=== PATIENT | female | born 1970 | race Caucasian/White ===

== ENCOUNTER 2017-09-30 21:57 | Emergency (ER) | payer SELFPAY ==
[~2017-09-30] VITALS: Ht 160 cm; Wt 56.7 kg
[~2017-09-30 21:57] MED LIST: METR500T PO; ONDA8TAB12 PO; PENI500T PO; TRAM1TAB4 PO
--- NOTE | 2017-09-30 22:01 | ED.ADGEN ---
Past History Past Medical History: Depression, Fibromyalgia, GERD, UTI, Other Past Surgical History: Hysterectomy, Other Smoking: Non-smoker Alcohol Use: Rarely Drug Use: None Adult General Chief Complaint Chief Complaint ".. I was coughing hard.. and I felt something give down in my groin and vaginal area... it been hurting ever since..." [facility] HPI Patient is a 47 year old female who presents with above hx and complaints lower abd. pain after coughing spasms 3 days ago. Pt. has hx of epigastric pain and irritable bowel. . Pt. has had previous hx. of frequent UTI as child and up thru. teenager. Pt. has hx of frequent ovarian cyst which resulted in total oophorectomy and hysterectomy. Patient's gravid x2, x 2. Vaginal deliveries. Episodes of crabs- pubic lice as a teenager. No other STD's. Pt. had 9 sexual partners in her life time. Pt. denies other trauma or recent sexual activity. Pt. denies hx of immunosuppression. No changes in stooling. Pt. has noted some dysuria and feels like she can't empty her bladder. Has noticed since the coughing episode bulge into her vaginal area. Pt. normally follows as [place]. Review of Systems Review of Systems Constitutional: Denies fever or chills [] Eyes: Denies change in visual acuity, redness, or eye pain [] HENT: Denies nasal congestion or sore throat [] Respiratory: Denies cough or shortness of breath [] Cardiovascular: No additional information not addressed in HPI [] GI: lower pelvic abdominal pain, nausea,. Denies vomiting, bloody stools or diarrhea [] : Some complaints of dysuria. Musculoskeletal: Denies back pain or joint pain [] Integument: Denies rash or skin lesions [] Neurologic: Denies headache, focal weakness or sensory changes [] Endocrine: Denies polyuria or polydipsia [] All other systems were reviewed and found to be within normal limits, except as documented in this note. Family History Family History Non-contributory Current Medications Current Medications Current Medications Medications (Trade) Dose Ordered Sig/Rosalba Start Time Stop Time Status Last Admin Dose Admin Famotidine (Pepcid Vial) 20 mg 1X ONCE 09/30/17 23:00 09/30/17 23:05 DC 09/30/17 23:07 20 MG Info (Do NOT chart on this entry -- for MONITORING) 1 each PRN DAILY PRN 09/30/17 23:15 10/01/17 02:10 DC Iohexol (Omnipaque 240 Mg/ml) 30 ml 1X ONCE 09/30/17 23:00 09/30/17 23:04 DC 10/01/17 00:06 30 ML Iohexol (Omnipaque 300 Mg/ml) 75 ml 1X ONCE 09/30/17 23:00 09/30/17 23:05 DC 10/01/17 00:06 75 ML Lactated Ringer's 1,000 ml @ 1,000 mls/hr Q1H 09/30/17 22:30 09/30/17 23:29 DC 09/30/17 23:06 1,000 MLS/HR Ondansetron HCl (Zofran) 8 mg 1X ONCE 09/30/17 23:00 09/30/17 23:05 DC 09/30/17 23:07 8 MG Allergies Allergies Allergies Coded Allergies Type Severity Reaction Last Updated Verified Sulfa (Sulfonamide Antibiotics) Allergy Unknown 11/17/15 Yes ascorbic acid Allergy Unknown 11/17/15 Yes Physical Exam Physical Exam Constitutional: Moderately acute distress, non-toxic appearance. [] HENT: Normocephalic, atraumatic, bilateral external ears normal, oropharynx moist, no oral exudates, nose normal. [] Eyes: PERRLA, EOMI, conjunctiva normal, no discharge. [] Neck: Normal range of motion, no tenderness, supple, no stridor. [] Cardiovascular:Heart rate regular rhythm, no murmur [] Lungs & Thorax: Bilateral breath sounds clear to auscultation [] Abdomen: Bowel sounds normal, soft, no tenderness, no masses, no pulsatile masses. [] Old surgery scars. Distended bladder. Vaginal area has some compression of bladder into vaginal area. Rectal hard stool. Skin: Warm, dry, no erythema, no rash. [] Back: No tenderness, no CVA tenderness. [] Extremities: No tenderness, no cyanosis, no clubbing, ROM intact, no edema. [] No psoas or obturator sign Neurologic: Alert and oriented X 3, normal motor function, normal sensory function, no focal deficits noted. [] Psychologic: Affect normal, judgement normal, mood normal. [] Current Patient Data Vital Signs Vital Signs Date Time Temp Pulse Resp B/P (MAP) Pulse Ox O2 Delivery O2 Flow Rate FiO2 10/01/17 01:35 79 18 115/72 (86) 98 Room Air 09/30/17 22:05 98.8 Lab Results Laboratory Tests Test 09/30/17 22:05 09/30/17 22:35 Urine Collection Type Unknown Urine Color Yellow Urine Clarity Clear Urine pH 6.5 Urine Specific [place] 1.010 Urine Protein Neg (NEG-TRACE) Urine Glucose (UA) Neg mg/dL (NEG) Urine Ketones (Stick) Neg mg/dL (NEG) Urine Blood Trace (NEG) Urine Nitrite Neg (NEG) Urine Bilirubin Neg (NEG) Urine Urobilinogen Dipstick 0.2 mg/dL (0.2 mg/dL) Urine Leukocyte Esterase Neg (NEG) Urine RBC 0 /HPF (0-2) Urine WBC 0 /HPF (0-4) Urine Squamous Epithelial Cells Few /LPF Urine Bacteria 0 /HPF (0-FEW) Urine Mucus Mod /LPF Urine Opiates Screen Neg (NEG) Urine Methadone Screen Neg (NEG) Urine Barbiturates Neg (NEG) Urine Phencyclidine Screen Neg (NEG) Urine Amphetamine/Methamphetamine Neg (NEG) Urine Benzodiazepines Screen Neg (NEG) Urine Cocaine Screen Neg (NEG) Urine Cannabinoids Screen Pos (NEG) Urine Ethyl Alcohol Neg (NEG) White Blood Count 6.7 x10^3/uL (4.0-11.0) Red Blood Count 4.80 x10^6/uL (3.50-5.40) Hemoglobin 14.3 g/dL (12.0-15.5) Hematocrit 40.9 % (36.0-47.0) Mean Corpuscular Volume 85 fL (79-100) Mean Corpuscular Hemoglobin 30 pg (25-35) Mean Corpuscular Hemoglobin Concent 35 g/dL (31-37) Red Cell Distribution Width 13.1 % (11.5-14.5) Platelet Count 288 x10^3/uL (140-400) Neutrophils (%) (Auto) 53 % (31-73) Lymphocytes (%) (Auto) 38 % (24-48) Monocytes (%) (Auto) 5 % (0-9) Eosinophils (%) (Auto) 4 % (0-3) H Basophils (%) (Auto) 1 % (0-3) Neutrophils # (Auto) 3.5 x10^3uL (1.8-7.7) Lymphocytes # (Auto) 2.5 x10^3/uL (1.0-4.8) Monocytes # (Auto) 0.3 x10^3/uL (0.0-1.1) Eosinophils # (Auto) 0.2 x10^3/uL (0.0-0.7) Basophils # (Auto) 0.1 x10^3/uL (0.0-0.2) Prothrombin Time 10.0 SEC (9.4-11.4) Prothrombin Time INR 1.0 (0.9-1.1) PTT 25 SEC (23-33) Sodium Level 143 mmol/L (136-145) Potassium Level 3.4 mmol/L (3.5-5.1) L Chloride Level 104 mmol/L (98-107) Carbon Dioxide Level 29 mmol/L (21-32) Anion Gap 10 (6-14) Blood Urea Nitrogen 13 mg/dL (7-20) Creatinine 1.0 mg/dL (0.6-1.0) Estimated GFR (Cockcroft-Gault) 59.4 Glucose Level 100 mg/dL (70-99) H Calcium Level 8.9 mg/dL (8.5-10.1) Total Bilirubin 0.5 mg/dL (0.2-1.0) Direct Bilirubin 0.1 mg/dL (0.0-0.2) Aspartate Amino Transferase (AST) 16 U/L (15-37) Alanine Aminotransferase (ALT) 23 U/L (14-59) Alkaline Phosphatase 84 U/L (46-116) Troponin I Quantitative < 0.017 ng/mL (0-0.055) Total Protein 7.8 g/dL (6.4-8.2) Albumin 4.1 g/dL (3.4-5.0) Lipase 127 U/L (73-393) Microbiology 09/30/17 Wet Prep - Final, Complete Laboratory Tests Test 09/30/17 22:05 09/30/17 22:35 Urine Collection Type Unknown Urine Color Yellow Urine Clarity Clear Urine pH 6.5 Urine Specific [place] 1.010 Urine Protein Neg (NEG-TRACE) Urine Glucose (UA) Neg mg/dL (NEG) Urine Ketones (Stick) Neg mg/dL (NEG) Urine Blood Trace (NEG) Urine Nitrite Neg (NEG) Urine Bilirubin Neg (NEG) Urine Urobilinogen Dipstick 0.2 mg/dL (0.2 mg/dL) Urine Leukocyte Esterase Neg (NEG) Urine RBC 0 /HPF (0-2) Urine WBC 0 /HPF (0-4) Urine Squamous Epithelial Cells Few /LPF Urine Bacteria 0 /HPF (0-FEW) Urine Mucus Mod /LPF Urine Opiates Screen Neg (NEG) Urine Methadone Screen Neg (NEG) Urine Barbiturates Neg (NEG) Urine Phencyclidine Screen Neg (NEG) Urine Amphetamine/Methamphetamine Neg (NEG) Urine Benzodiazepines Screen Neg (NEG) Urine Cocaine Screen Neg (NEG) Urine Cannabinoids Screen Pos (NEG) Urine Ethyl Alcohol Neg (NEG) White Blood Count 6.7 x10^3/uL (4.0-11.0) Red Blood Count 4.80 x10^6/uL (3.50-5.40) Hemoglobin 14.3 g/dL (12.0-15.5) Hematocrit 40.9 % (36.0-47.0) Mean Corpuscular Volume 85 fL (79-100) Mean Corpuscular Hemoglobin 30 pg (25-35) Mean Corpuscular Hemoglobin Concent 35 g/dL (31-37) Red Cell Distribution Width 13.1 % (11.5-14.5) Platelet Count 288 x10^3/uL (140-400) Neutrophils (%) (Auto) 53 % (31-73) Lymphocytes (%) (Auto) 38 % (24-48) Monocytes (%) (Auto) 5 % (0-9) Eosinophils (%) (Auto) 4 % (0-3) H Basophils (%) (Auto) 1 % (0-3) Neutrophils # (Auto) 3.5 x10^3uL (1.8-7.7) Lymphocytes # (Auto) 2.5 x10^3/uL (1.0-4.8) Monocytes # (Auto) 0.3 x10^3/uL (0.0-1.1) Eosinophils # (Auto) 0.2 x10^3/uL (0.0-0.7) Basophils # (Auto) 0.1 x10^3/uL (0.0-0.2) Prothrombin Time 10.0 SEC (9.4-11.4) Prothrombin Time INR 1.0 (0.9-1.1) PTT 25 SEC (23-33) Sodium Level 143 mmol/L (136-145) Potassium Level 3.4 mmol/L (3.5-5.1) L Chloride Level 104 mmol/L (98-107) Carbon Dioxide Level 29 mmol/L (21-32) Anion Gap 10 (6-14) Blood Urea Nitrogen 13 mg/dL (7-20) Creatinine 1.0 mg/dL (0.6-1.0) Estimated GFR (Cockcroft-Gault) 59.4 Glucose Level 100 mg/dL (70-99) H Calcium Level 8.9 mg/dL (8.5-10.1) Total Bilirubin 0.5 mg/dL (0.2-1.0) Direct Bilirubin 0.1 mg/dL (0.0-0.2) Aspartate Amino Transferase (AST) 16 U/L (15-37) Alanine Aminotransferase (ALT) 23 U/L (14-59) Alkaline Phosphatase 84 U/L (46-116) Troponin I Quantitative < 0.017 ng/mL (0-0.055) Total Protein 7.8 g/dL (6.4-8.2) Albumin 4.1 g/dL (3.4-5.0) Lipase 127 U/L (73-393) Microbiology 09/30/17 Wet Prep - Final, Complete EKG EKG My interpretation of EKG shows sinus 84, no acute findings. [] Radiology/Procedures Radiology/Procedures My interpretation of abdomen film shows no acute cardiopulmonary findings. No free air in the diaphragm. There are findings previous surgeries. No findings of ileus. CT of abdomen shows no acute surgical processes[]. Some diverticulosis without diverticulitis. No free fluid. Appendix appears normal. [Review formal findings when available. Course & Med Decision Making Course & Med Decision Making Pertinent Labs and Imaging studies reviewed. (See chart for details). Pt. to followup with MANAGER CUSTOMER and Urology. Follow up with primary. Remove the roa in next couple days to see if this is just a transient urinary retention. Must follow up. [] Final Impression Final Impression 1. Abdomen Pain[] 2. Hypokalemia 3. Tobacco and Marijuana Use 4. Urinary Retention Dragon Disclaimer Dragon Disclaimer This electronic medical record was generated, in whole or in part, using a voice recognition dictation system. JLUIS LOPEZ MD Sep 30, 2017 22:01
[2017-09-30] MEDS ORDERED: IV RINGERS SOLUTION,LACTATED 1,000 ML IV SCH (22:30)
[2017-09-30 22:48] LABS: BASO # 0.1 x10^3/uL (0.0-0.2); BASO % 1 % (0-3); EOS # 0.2 x10^3/uL (0.0-0.7); EOS % 4 % (0-3); HEMATOCRIT 40.9 % (36.0-47.0); HEMOGLOBIN 14.3 g/dL (12.0-15.5); LYMPH # 2.5 x10^3/uL (1.0-4.8); LYMPH % 38 % (24-48); MEAN CORPUSCULAR HEMOGLOBIN 30 pg (25-35); MEAN CORPUSCULAR HGB CONC 35 g/dL (31-37); MEAN CORPUSCULAR VOLUME 85 fL (79-100); MONO # 0.3 x10^3/uL (0.0-1.1); MONO % 5 % (0-9); NEUT # 3.5 x10^3uL (1.8-7.7); NEUT % 53 % (31-73); PLATELET COUNT 288 x10^3/uL (140-400); RED CELL DISTRIBUTION WIDTH 13.1 % (11.5-14.5); WHITE BLOOD COUNT 6.7 x10^3/uL (4.0-11.0)
[2017-09-30 22:56] LABS: AMPHETAMINE/METHAMPHETAMINE NEG (NEG); BARBITURATES NEG (NEG); BENZODIAZEPINES NEG (NEG); CANNABINOIDS POS (NEG); COCAINE NEG (NEG); METHADONE NEG (NEG); OPIATES NEG (NEG); PHENCYCLIDINE NEG (NEG)
[2017-09-30 23:00] LABS: ALBUMIN 4.1 g/dL (3.4-5.0); CALCIUM 8.9 mg/dL (8.5-10.1); DIRECT BILIRUBIN 0.1 mg/dL (0.0-0.2); GFR 59.4; POTASSIUM 3.4 mmol/L (3.5-5.1); TOTAL BILIRUBIN 0.5 mg/dL (0.2-1.0); TOTAL PROTEIN 7.8 g/dL (6.4-8.2)
[2017-09-30] MEDS ORDERED: IOHEXOL 300 MG/ML 75 ML VIAL. IV ONE (23:00)
[2017-09-30] MEDS ORDERED: IOHEXOL 240 MG/ML 50ML VIAL. PO ONE (23:00)
[2017-09-30] MEDS ORDERED: ONDANSETRON PF 4 MG/2 ML VIAL. IV ONE (23:00)
[2017-09-30] MEDS ORDERED: FAMOTIDINE 20 MG/2 ML VIAL IVP ONE (23:00)
[2017-09-30 23:01] LABS: BACTERIA,URINE 0 /HPF (0-FEW); BILIRUBIN,URINE NEG (NEG); CLARITY,URINE CLEAR; COLOR,URINE YELLOW; GLUCOSE,URINE NEG (NEG); NITRITE,URINE NEG (NEG); RBC,URINE 0 /HPF (0-2); SQUAMOUS EPITHELIAL CELL,UR FEW /LPF; UROBILINOGEN,URINE 0.2 mg/dL (0.2 mg/dL); WBC,URINE 0 /HPF (0-4)
[2017-09-30] MEDS ORDERED: CONTRAST GIVEN MC PRN (23:15)
--- NOTE | 2017-10-01 00:25 | EKG ---
[address] [address] Test Date: 2017-09-30 Test Time: 22:27:22 Pat Name: ROHITH DIAZ Department: Room: Gender: F Motorcoach Driver: : 1970 Requested By: JLUIS LOPEZ Order Number: [id number] Reading MD: Prieto Flowers MD Measurements Intervals [place] Rate: 84 P: 42 WV: 152 QRS: 51 QRSD: 86 T: 54 QT: 362 QTc: 431 Interpretive Statements SINUS RHYTHM Electronically Signed On 10-01-2017 10:59:53 CDT by Prieto Flowers MD
--- NOTE | 2017-10-01 00:51 | RAD ---
PQRS Compliance Statement: One or more of the following individualized dose reduction techniques were utilized for this examination: 1. Automated exposure control 2. Adjustment of the mA and/or kV according to patient size 3. Use of iterative reconstruction technique CT ABD PELV W/ORAL IV CONTRAST Clinical Indication: Lower abdomen pain with pressure in vaginal region, nausea x 2 days. Hx: Hysterectomy, IBS Comparison: None. Technique: Helical CT imaging of the abdomen and pelvis is performed after 75 cc of Omnipaque 300 IV contrast. Oral contrast also given. Findings: Minimal atelectasis in the bilateral lung bases. Cardiac size normal. Tiny hypodensity in the right hepatic lobe at the dome, too small to further characterize, image 7. The gallbladder, spleen, pancreas, adrenal glands, abdominal aorta, and kidneys are normal. Stomach unremarkable. No dilated small bowel. Sigmoid colon diverticulosis without inflammation. No colon wall thickening. The appendix is normal. No abdominal adenopathy or free fluid. Urinary bladder is normal. Hysterectomy. No pelvic free fluid. Transitional lumbosacral anatomy. IMPRESSION: 1. No acute abdominal or pelvic abnormality. 2. Sigmoid colon diverticulosis without diverticulitis. Electronically signed by: Iain Botello MD (10/01/2017 12:47 AM) [facility]
[2017-10-01 01:35] VITALS: BP 115/72
--- NOTE | 2017-10-01 04:14 | RAD ---
ACUTE ABDOMEN SERIES History: Lower abdominal pain and pressure, patient states something is pushing into her vagina region. Comparison: None. Findings: Frontal chest and supine and upright views of the abdomen. Cardiomediastinal silhouette is normal. There is no pleural effusion or pneumothorax. The lungs are clear. No pneumoperitoneum is identified. No dilated air-filled loops of bowel are seen. Bowel gas pattern is nonobstructive. Scattered air and stool in the ascending, transverse, and descending colon. No obvious organomegaly. Bones unremarkable. IMPRESSION: 1. No acute cardiopulmonary process. 2. Nonobstructive bowel gas pattern. Electronically signed by: Iain Botello MD (10/01/2017 4:11 AM) [facility]
[2017-10-01] MEDS ORDERED: CIPR250T30 PO (08:55)
[2017-10-02 15:11] LABS: CHLAMYDIA PROBE Negative (Negative)
== END 2017-10-01 01:50 | disposition home or self-care (01) ==
LOC: ER 21:57
DX: R10.2 Pelvic and perineal pain (principal); E87.6 Hypokalemia; R33.9 Retention of urine, unspecified; F12.90 Cannabis use, unspecified, uncomplicated; M79.7 Fibromyalgia; K21.9 Gastro-esophageal reflux disease without esophagitis; F32.9 Major depressive disorder, single episode, unspecified; Z72.0 Tobacco use; Z87.440 Personal history of urinary (tract) infections; Z90.710 Acquired absence of both cervix and uterus; Z88.2 Allergy status to sulfonamides; Z88.8 Allergy status to other drugs, medicaments and biological substances
CPT/HCPCS: 36415; 51702; 74022; 74177; 80048; 80076; 80307; 81001; 83690; 84484; 85025; 85610; 85730; 87491; 87591; 93005; 96361; 96374; 96375; 99285; J2405; J7120; Q0111; Q9966; Q9967; S0028; G0479

== ENCOUNTER 2017-10-01 08:25 | Emergency (ER) | payer SELFPAY ==
[~2017-10-01] VITALS: Ht 157.5 cm; Wt 68.0 kg
[2017-10-01 08:25] VITALS: BP 141/84
[2017-10-01] MEDS ORDERED: CIPR250T30 PO (08:55)
--- NOTE | 2017-10-01 08:55 | PHYS DOC ---
Past History Past Medical History: Depression, Fibromyalgia, GERD, UTI, Other Past Surgical History: Hysterectomy Smoking: Non-smoker Alcohol Use: Rarely Drug Use: None Adult General Chief Complaint Chief Complaint: CATHETER CHANGE HPI HPI Patient is a 47 year old female who presents with problem. 40 catheter. Patient had insertion of Hanson catheter placement in this emergency room last night because of urinary retention with underlying unremarkable labs including UA. Patient states she didn't know how to empty the bag and there was about 400 ML of urine in the bag. Patient denies abdominal pain and nausea and vomiting and fever and chills. Review of Systems Review of Systems Constitutional: Denies fever or chills [] Eyes: Denies change in visual acuity, redness, or eye pain [] HENT: Denies nasal congestion or sore throat [] Respiratory: Denies cough or shortness of breath [] Cardiovascular: No additional information not addressed in HPI [] GI: Denies abdominal pain, nausea, vomiting, bloody stools or diarrhea [] : Denies dysuria or hematuria [] Musculoskeletal: Denies back pain or joint pain [] Integument: Denies rash or skin lesions [] Neurologic: Denies headache, focal weakness or sensory changes [] Endocrine: Denies polyuria or polydipsia [] All other systems were reviewed and found to be within normal limits, except as documented in this note. Allergies Allergies Allergies Coded Allergies Type Severity Reaction Last Updated Verified Sulfa (Sulfonamide Antibiotics) Allergy Unknown 11/17/15 Yes ascorbic acid Allergy Unknown 11/17/15 Yes Physical Exam Physical Exam Constitutional: Well developed, well nourished, no acute distress, non-toxic appearance. [] HENT: Normocephalic, atraumatic Eyes: PERRLA, EOMI, conjunctiva normal, no discharge. [] Neck: Normal range of motion, no tenderness, supple, no stridor. [] Cardiovascular:Heart rate regular rhythm, no murmur [] Lungs & Thorax: Bilateral breath sounds clear to auscultation [] Abdomen: Bowel sounds normal, soft, no tenderness, no masses, no pulsatile masses. Hanson catheter in place with about 400 ML of urine in the bag with clear color. Skin: Warm, dry, no erythema, no rash. [] Back: No tenderness, no CVA tenderness. [] Extremities: No tenderness, no cyanosis, no clubbing, ROM intact, no edema. [] Neurologic: Alert and oriented X 3, normal motor function, normal sensory function, no focal deficits noted. [] Psychologic: Affect normal, judgement normal, mood normal. [] EKG EKG [] Radiology/Procedures Radiology/Procedures [] Course & Med Decision Making Course & Med Decision Making Evaluation of patient in ER showed 47-year-old patient presented with problem with emptying Hanson catheter that was placed in this emergency room yesterday. Patient was educated by MATH INTERVENTIONIST about and pink 40 catheter. Prescription for Cipro 6 was given. Dragon Disclaimer Dragon Disclaimer This electronic medical record was generated, in whole or in part, using a voice recognition dictation system. Departure Departure: Impression: Primary Impression: Problem with Hanson catheter Disposition: 01 HOME, SELF-CARE (At 0854) Condition: IMPROVED Referrals: PCP,NO (PCP) Patient Instructions: Hanson Catheter Care, Adult Additional Instructions: Drink plenty of liquids Follow-up with your primary care physician for removing the Hanson catheter as instructed Return to ER if not getting better Scripts Ciprofloxacin Hcl (CIPRO) 250 Mg Tablet 1 TAB PO BID, #6 TAB Prov: BRENNEN NINA MD 10/01/17 BRENNEN NINA MD Oct 01, 2017 08:55
== END 2017-10-01 09:00 | disposition home or self-care (01) ==
LOC: ER 08:25
DX: T83.098A Other mechanical complication of other urinary catheter, initial encounter (principal); M79.7 Fibromyalgia; K21.9 Gastro-esophageal reflux disease without esophagitis; Z87.440 Personal history of urinary (tract) infections; Z90.710 Acquired absence of both cervix and uterus; Z88.8 Allergy status to other drugs, medicaments and biological substances; Z88.2 Allergy status to sulfonamides
CPT/HCPCS: 99283; 99284

== ENCOUNTER 2017-10-03 16:18 | Emergency (ER) | payer SELFPAY ==
[2017-10-03 16:18] VITALS: BP 121/79
[~2017-10-03 16:18] MED LIST changes: +CIPR250T30 PO
--- NOTE | 2017-10-03 17:02 | PHYS DOC ---
"Past History Past Medical History: Depression, Fibromyalgia, GERD, UTI, Other Past Surgical History: Hysterectomy Smoking: Non-smoker Alcohol Use: Rarely Drug Use: None Adult General Chief Complaint Chief Complaint: URINE CATHETER PROBLEM HPI HPI This is a pleasant 47-year-old female who presents the emergency department today with a urinary catheter in place placed by Dr. Medina here at our hospital a few days ago. She was found to have urinary retention after a postvoid residual showed heard at 200 mL of fluid in her bladder. CT scan was otherwise unremarkable for acute pathology. She has been taking ciprofloxacin prescribed by Dr. Sifuentes after Dr. Medina had placed the catheter. The patient is supposed to follow-up with uro gynecology for referral for urinary retention. The patient is currently trying to attempt to make this appointment. She is asymptomatic. Review of systems is negative for chest pain shortness of breath abdominal pain nausea vomiting fevers chills. She denies cloudy urine. All other review of systems is negative unless otherwise noted in history of present illness. ED course: 47-year-old female presenting to the emergency department today for evaluation. She was diagnosed with urinary retention and had a catheter placed. She is asking whether she could have the catheter removed today. I had a long risk-benefit discussion with the patient about the risk of infection for having the catheter in versus the risk of obstructive renal failure for not enabling full voiding. Collectively, I believe it is in the patient's best interest to keep the catheter in place at this point to follow-up with uro gynecology. The patient has been examined and was not found to have an emergency medical condition. The patient was then discharged home in stable condition to follow up with their primary care physician over the next 2-3 days. They were to return if their symptoms worsened or if they were concerned for any reason. They were also instructed to return to the emergency department if they were unable to get the recommended and appropriate follow-up. [id number] discharge instructions and return precautions were given. Patient's questions were answered to their satisfaction. Patient is comfortable with plan. Review of Systems Review of Systems SEE ABOVE. Allergies Allergies Allergies Coded Allergies Type Severity Reaction Last Updated Verified Sulfa (Sulfonamide Antibiotics) Allergy Unknown 11/17/15 Yes ascorbic acid Allergy Unknown 11/17/15 Yes Physical Exam Physical Exam SEE ABOVE Constitutional: Well developed, well nourished, no acute distress, non-toxic appearance. [] HENT: Normocephalic, atraumatic, bilateral external ears normal, oropharynx moist, no oral exudates, nose normal. [] Eyes: PERRLA, EOMI, conjunctiva normal, no discharge. [] Neck: Normal range of motion, no tenderness, supple, no stridor. [] Cardiovascular:Heart rate regular rhythm, no murmur [] Lungs & Thorax: Bilateral breath sounds clear to auscultation [] Abdomen: Bowel sounds normal, soft, no tenderness, no masses, no pulsatile masses. [] Skin: Warm, dry, no erythema, no rash. [] Back: No tenderness, no CVA tenderness. [] Extremities: No tenderness, no cyanosis, no clubbing, ROM intact, no edema. [] Neurologic: Alert and oriented X 3, normal motor function, normal sensory function, no focal deficits noted. [] Psychologic: Affect normal, judgement normal, mood normal. [] Current Patient Data Vital Signs Vital Signs Date Time Temp Pulse Resp B/P (MAP) Pulse Ox O2 Delivery O2 Flow Rate FiO2 10/03/17 16:18 98.4 81 18 98 Room Air EKG EKG [] Radiology/Procedures Radiology/Procedures [] Course & Med Decision Making Course & Med Decision Making Pertinent Labs and Imaging studies reviewed. (See chart for details) [] Dragon Disclaimer Dragon Disclaimer This electronic medical record was generated, in whole or in part, using a voice recognition dictation system. Departure Departure: Impression: Primary Impression: Urinary retention Disposition: 01 HOME, SELF-CARE Condition: STABLE Referrals: PCP,NO (PCP) Patient Instructions: Urinary Retention, Acute, Female Additional Instructions: Thank you for allowing us to participate in your care today. Return to the emergency department you have any new or worsening symptoms, or if you are concerned for any reason. Return to emergency department if you have any new or concerning symptoms including but not limited to fever, chills, nausea, vomiting, intractable pain, any new rashes, chest pain, shortness of air , uncontrolled bleeding, difficulty breathing, and/or vision loss. Follow up with urogynecology in 3-4 days and pcp in 2-[address] Orr [address], [address] [place] [address] P [phone] | F [phone] Call your Primary Doctor tomorrow and inform them of your visit today. If you do not have a primary care provider we are happy to provide you with a list of our primary care providers contact information. This condition should be evaluated by your primary care physician and any recommended consulting services for continued management within 2-3 days after discharge. If at any time, you are having difficulty getting into your primary care doctor or a specialist, return to the emergency department. ANALISA MCKINNEY MD Oct 03, 2017 17:02"
== END 2017-10-03 17:20 | disposition home or self-care (01) ==
LOC: ER 16:18
DX: R33.9 Retention of urine, unspecified (principal); M79.7 Fibromyalgia; K21.9 Gastro-esophageal reflux disease without esophagitis; Z87.440 Personal history of urinary (tract) infections; Z90.710 Acquired absence of both cervix and uterus; Z88.2 Allergy status to sulfonamides; Z88.8 Allergy status to other drugs, medicaments and biological substances
CPT/HCPCS: 99281